=== PATIENT | male | born 1960 | race Caucasian/White ===

== ENCOUNTER → 2018-06-16 | Outpatient (REF) ==
[2018-06-16 12:58] LABS: RUBELLA IgG QUALITATIVE IMMUNE (IMMUNE)
[2018-06-17 08:36] LABS: RUBEOLA IgG ANTIBODY <25.0 AU/mL (Immune >29.9)
== END ==
LOC: M LAB 10:18
DX: Z00.00 Encounter for general adult medical examination without abnormal findings (principal)